=== PATIENT | female | born 1950 | race Caucasian/White ===

== ENCOUNTER 2017-08-02 02:39 | Emergency (ER) | payer MEDICARE | END 2017-08-02 03:22 | disposition left against medical advice (07) | LOC: JP.ED 02:39 | DX: Z53.21 Procedure and treatment not carried out due to patient leaving prior to being seen by health care provider (principal) ==

== ENCOUNTER 2017-08-02 07:46 | Emergency (ER) | payer MEDICARE ==
[2017-08-02] MEDS ORDERED: Ondansetron 4 MG/2 ML SDV IVPUSH ONE (08:26)
[2017-08-02] MEDS: Sodium Chloride 0.9% 1,000 ML IV SCH ×2 (09:01→12:44)
[2017-08-02 12:06] VITALS: BP 136/83
[2017-08-02] MEDS ORDERED: Sodium Chloride 0.9% 1,000 ML IV SCH (12:15)
[2017-08-02] MEDS ORDERED: hydrOXYzine HCl 100 MG/2 ML SDV IM ONE (12:39)
[2017-08-02] MEDS ORDERED: Iopamidol 612 MG/ML 100 ML Bottle IV PRN (13:20)
[2017-08-02] MEDS ORDERED: Sodium Chloride 0.9% 71 ML IV SCH (13:30)
--- NOTE | 2017-08-02 14:47 | EDM.PDOC ---
ED HPI GENERAL MEDICAL PROBLEM - General Chief Complaint: Gastrointestinal Problem Stated Complaint: PAINS IN STOMACH Time Seen by Provider: 08/02/17 08:15 Source of Information: Reports: Patient History Limitations: Reports: No Limitations - History of Present Illness INITIAL COMMENTS - FREE TEXT/NARRATIVE: pt arrived with acute crampy like abdomanal pain. She has been dry heaving and she has been pouring out alot of liquid stools. She states this started in the nite. She has had partial bowel obstruction in the past. Onset: Other (last nite, ) Duration: Hour(s): Location: Reports: Abdomen, Other ( she gets spasms of pain that will last about 10-15 minutes. 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: Polycystic Ovaries Endocrine/Metabolic History: Reports: Hypothyroidism - Infectious Disease History Infectious Disease History: Reports: Chicken Pox, Scarlet Fever, Shingles Social & Family History - Tobacco Use Smoking Status *Q: Former Smoker Years of Tobacco use: 1 Packs/Tins Daily: 0.5 Used Tobacco, but Quit: Yes Month/Year Tobacco Last Used: - Caffeine Use Caffeine Use: Reports: Tea - Recreational Drug Use Recreational Drug Use: No ED ROS GENERAL - Review of Systems Review Of Systems: See Below Constitutional: Reports: No Symptoms HEENT: Reports: No Symptoms Respiratory: Reports: No Symptoms Cardiovascular: Reports: No Symptoms Endocrine: Reports: No Symptoms GI/Abdominal: Reports: Abdominal Pain, Diarrhea, Nausea, Vomiting : Reports: No Symptoms Musculoskeletal: Reports: No Symptoms Skin: Reports: No Symptoms Neurological: Reports: No Symptoms ED EXAM, GI/ABD - Physical Exam Exam: See Below Text/Narrative:: pt arrived with crampy abdomanal pain and markd diarrha . She has been dry heavying. She has been having episodes off pain that will last for 15\ minutes. Exam Limited By: No Limitations General Appearance: Alert, Anxious Ears: Normal TMs Nose: Normal Inspection Throat/Mouth: Normal Inspection Head: Atraumatic Neck: Normal Inspection Respiratory/Chest: No Respiratory Distress Cardiovascular: Regular Rate, Rhythm GI/Abdominal Exam: Tender, Other ( Pt has generalized tendrness. ) (Female) Exam: Deferred Rectal (Female) Exam: Deferred Back Exam: Normal Inspection Extremities: Normal Inspection Neurological: Alert, Oriented, Normal Cognition Course - Vital Signs Last Recorded V/S: Last Vital Signs Temp 35.9 C 08/02/17 12:04 Pulse 69 08/02/17 12:04 Resp 16 08/02/17 12:04 BP 136/83 08/02/17 12:04 Pulse Ox 100 08/02/17 12:04 - Orders/Labs/Meds Orders: Active Orders 24 hr Category Date Time Status Abdomen Pelvis w Cont [CT] Stat Exams 08/02/17 12:39 Taken Abdomen Series w Chest 1V [CR] Stat Exams 08/02/17 08:27 Taken CLOSTRIDIUM DIFFICILE BY PCR [RM] Stat Lab 08/02/17 09:35 Ordered UA W/MICROSCOPIC [URIN] Urgent Lab 08/02/17 12:03 Ordered Iopamidol [Isovue-300 (61%)] Med 08/02/17 13:20 Active 96 ml IV . DIRECTED PRN Sodium Chloride 0.9% [Normal Saline] 1,000 ml Med 08/02/17 08:30 Active IV ASDIRECTED Sodium Chloride 0.9% [Normal Saline] 1,000 ml Med 08/02/17 12:15 Active IV ASDIRECTED Sodium Chloride 0.9% [Normal Saline] 71 ml Med 08/02/17 13:30 Active IV ASDIRECTED Medication Orders Sodium Chloride (Normal Saline) 1,000 mls @ 999 mls/hr IV ASDIRECTED KAYY Last Admin: 08/02/17 12:44 Dose: 999 mls/hr Infusion: 08/02/17 10:02 Dose: 999 mls/hr Admin: 08/02/17 09:01 Dose: 999 mls/hr Sodium Chloride (Normal Saline) 1,000 mls @ 999 mls/hr IV ASDIRECTED KAYY Sodium Chloride (Normal Saline) 71 mls @ 3 mls/sec IV ASDIRECTED KAYY Stop: 08/02/17 20:00 Last Admin: 08/02/17 13:47 Dose: 3 mls/sec Iopamidol (Isovue-300 (61%)) 96 ml IV . DIRECTED PRN PRN Reason: RADIOLOGY EXAM Stop: 08/03/17 13:21 Last Admin: 08/02/17 13:47 Dose: 100 ml Labs: Laboratory Tests 08/02/17 08/02/17 08/02/17 Range/Units 08:24 08:25 09:59 WBC 10.2 (4.5-11.0) K/uL RBC 5.23 (3.30-5.50) M/uL Hgb 15.2 H (12.0-15.0) g/dL Hct 44.6 (36.0-48.0) % MCV 85 (80-98) fL MCH 29 (27-31) pg MCHC 34 (32-36) % Plt Count 285 (150-400) K/uL Neut % (Auto) 88 H (36-66) % Lymph % (Auto) 8 L (24-44) % [place] % (Auto) 4 (2-6) % Eos % (Auto) 0 L (2-4) % Baso % (Auto) 0 (0-1) % Sodium 134 L (140-148) mmol/L Potassium 4.0 (3.6-5.2) mmol/L Chloride 101 (100-108) mmol/L Carbon Dioxide 20 L (21-32) mmol/L Anion Gap 17.0 H (5.0-14.0) mmol/L BUN 17 (7-18) mg/dL Creatinine 0.9 (0.6-1.0) mg/dL Est Cr Clr Drug Dosing 49.49 mL/min Estimated GFR (MDRD) > 60 (>60) Glucose 134 H (74-106) mg/dL Calcium 8.3 L (8.5-10.1) mg/dL Total Bilirubin 0.6 (0.2-1.0) mg/dL AST 20 (15-37) U/L ALT 29 (12-78) U/L Alkaline Phosphatase 61 (46-116) U/L C-Reactive Protein 0.35 H (0.0-0.3) mg/dL Total Protein 6.3 L (6.4-8.2) g/dL Albumin 3.4 (3.4-5.0) g/dL Globulin 2.9 (2.3-3.5) g/dL Albumin/Globulin Ratio 1.2 (1.2-2.2) Amylase (25-115) U/L Lipase (73-393) U/L Urine Color Urine Appearance Urine pH (4.5-8.0) Ur Specific [place] (1.008-1.030) Urine Protein (NEGATIVE) mg/dL Urine Glucose (UA) (NEGATIVE) mg/dL Urine Ketones (NEGATIVE) mg/dL Urine Occult Blood (NEGATIVE) Urine Nitrite (NEGATIVE) Urine Bilirubin (NEGATIVE) Urine Urobilinogen (NORMAL) mg/dL Ur Leukocyte Esterase (NEGATIVE) Urine RBC (0-5) Urine WBC (0-5) Ur Epithelial Cells Amorphous Sediment Urine Bacteria Urine Mucus 08/02/17 08/02/17 Range/Units 10:07 12:03 WBC (4.5-11.0) K/uL RBC (3.30-5.50) M/uL Hgb (12.0-15.0) g/dL Hct (36.0-48.0) % MCV (80-98) fL MCH (27-31) pg MCHC (32-36) % Plt Count (150-400) K/uL Neut % (Auto) (36-66) % Lymph % (Auto) (24-44) % [place] % (Auto) (2-6) % Eos % (Auto) (2-4) % Baso % (Auto) (0-1) % Sodium (140-148) mmol/L Potassium (3.6-5.2) mmol/L Chloride (100-108) mmol/L Carbon Dioxide (21-32) mmol/L Anion Gap (5.0-14.0) mmol/L BUN (7-18) mg/dL Creatinine (0.6-1.0) mg/dL Est Cr Clr Drug Dosing mL/min Estimated GFR (MDRD) (>60) Glucose (74-106) mg/dL Calcium (8.5-10.1) mg/dL Total Bilirubin (0.2-1.0) mg/dL AST (15-37) U/L ALT (12-78) U/L Alkaline Phosphatase (46-116) U/L C-Reactive Protein (0.0-0.3) mg/dL Total Protein (6.4-8.2) g/dL Albumin (3.4-5.0) g/dL Globulin (2.3-3.5) g/dL Albumin/Globulin Ratio (1.2-2.2) Amylase 31 (25-115) U/L Lipase 136 (73-393) U/L Urine Color Yellow Urine Appearance Clear Urine pH 5.0 (4.5-8.0) Ur Specific [place] 1.015 (1.008-1.030) Urine Protein Negative (NEGATIVE) mg/dL Urine Glucose (UA) Normal (NEGATIVE) mg/dL Urine Ketones Negative (NEGATIVE) mg/dL Urine Occult Blood Negative (NEGATIVE) Urine Nitrite Negative (NEGATIVE) Urine Bilirubin Negative (NEGATIVE) Urine Urobilinogen Normal (NORMAL) mg/dL Ur Leukocyte Esterase Negative (NEGATIVE) Urine RBC 0-5 (0-5) Urine WBC 0-5 (0-5) Ur Epithelial Cells Rare Amorphous Sediment Not seen Urine Bacteria Not seen Urine Mucus Not seen Meds: Medications Generic Name Dose Route Start Last Admin Trade Name Freq PRN Reason Stop Dose Admin Sodium Chloride 1,000 mls @ 999 mls/hr 08/02/17 08:30 08/02/17 12:44 Normal Saline IV 999 mls/hr ASDIRECTED KAYY Administration Sodium Chloride 1,000 mls @ 999 mls/hr 08/02/17 12:15 Normal Saline IV ASDIRECTED KAYY Sodium Chloride 71 mls @ 3 mls/sec 08/02/17 13:30 08/02/17 13:47 Normal Saline IV 08/02/17 20:00 3 mls/sec ASDIRECTED KAYY Administration Iopamidol 96 ml 08/02/17 13:20 08/02/17 13:47 Isovue-300 (61%) IV 08/03/17 13:21 100 ml . DIRECTED PRN Administration RADIOLOGY EXAM Discontinued Medications Generic Name Dose Route Start Last Admin Trade Name Freq PRN Reason Stop Dose Admin Hydroxyzine HCl 100 mg 08/02/17 12:39 08/02/17 12:48 Vistaril IM 08/02/17 12:40 100 mg ONETIME ONE Administration Ondansetron HCl 4 mg 08/02/17 08:26 08/02/17 09:15 Zofran IVPUSH 08/02/17 08:27 4 mg ONETIME ONE Administration - Re-Assessments/Exams Free Text/Narrative Re-Assessment/Exam: 08/02/17 14:54 pt had a cat scan of the abdoman which did not reveal acute findings. 08/02/17 14:54 Her lab work looked ok. Her crp was not elevated. Departure - Departure Time of Disposition: 14:45 Disposition: Home, Self-Care 01 Condition: Fair Clinical Impression: Diarrhea, Dehydration, Abdominal cramping - Discharge Information Referrals: Eugenio Wall MD [Primary Care Provider] - Forms: ED Department Discharge Care Plan Goals: , clear liquid diet, rtc if pain should get alot worse, zoforan 4mg q6h prn for nausea - My Orders Last 24 Hours: My Active Orders 08/02/17 08:27 Abdomen Series w Chest 1V [CR] Stat 08/02/17 08:30 Sodium Chloride 0.9% [Normal Saline] 1,000 ml IV ASDIRECTED 08/02/17 09:35 CLOSTRIDIUM DIFFICILE BY PCR [RM] Stat 08/02/17 12:03 UA W/MICROSCOPIC [URIN] Urgent 08/02/17 12:15 Sodium Chloride 0.9% [Normal Saline] 1,000 ml IV ASDIRECTED 08/02/17 12:39 Abdomen Pelvis w Cont [CT] Stat 08/02/17 13:20 Iopamidol [Isovue-300 (61%)] 96 ml IV . DIRECTED PRN 08/02/17 13:30 Sodium Chloride 0.9% [Normal Saline] 71 ml IV ASDIRECTED - Assessment/Plan Last 24 Hours: My Active Orders 08/02/17 08:27 Abdomen Series w Chest 1V [CR] Stat 08/02/17 08:30 Sodium Chloride 0.9% [Normal Saline] 1,000 ml IV ASDIRECTED 08/02/17 09:35 CLOSTRIDIUM DIFFICILE BY PCR [RM] Stat 08/02/17 12:03 UA W/MICROSCOPIC [URIN] Urgent 08/02/17 12:15 Sodium Chloride 0.9% [Normal Saline] 1,000 ml IV ASDIRECTED 08/02/17 12:39 Abdomen Pelvis w Cont [CT] Stat 08/02/17 13:20 Iopamidol [Isovue-300 (61%)] 96 ml IV . DIRECTED PRN 08/02/17 13:30 Sodium Chloride 0.9% [Normal Saline] 71 ml IV ASDIRECTED
--- NOTE | 2017-08-04 09:06 | CR ---
Abdomen Series w Chest 1V CLINICAL HISTORY: Abdominal pain FINDINGS: There are scattered air-filled loops of small bowel with scattered air-fluid levels. There is mild gaseous distention of colon. No free air is identified. Lungs are clear Impression: Small bowel distention. This could represent ileus but early bowel obstruction is not exc luded
== END 2017-08-02 15:01 | disposition home or self-care (01) ==
LOC: JP.ED 07:46
DX: E86.0 Dehydration (principal); R19.7 Diarrhea, unspecified; R10.9 Unspecified abdominal pain; E03.9 Hypothyroidism, unspecified; Z91.040 Latex allergy status; Z88.0 Allergy status to penicillin; Z88.8 Allergy status to other drugs, medicaments and biological substances; Z79.899 Other long term (current) drug therapy; Z87.891 Personal history of nicotine dependence
CPT/HCPCS: 36415; 74022; 74177; 80053; 81001; 82150; 83690; 85025; 86140; 96361; 96372; 96374; 99284; J2405; J3410; J7030; Q9967

== ENCOUNTER 2017-11-03 11:33 | Emergency (ER) | payer MEDICARE ==
[2017-11-03 13:33] VITALS: BP 148/79
--- NOTE | 2017-11-03 13:51 | EDM.PDOC ---
ED HPI GENERAL MEDICAL PROBLEM - General Chief Complaint: Eye Problems Stated Complaint: VISION PROBLEMS IN THE LF EYE Time Seen by Provider: 11/03/17 13:40 Source of Information: Reports: Patient, Family, Provider, RN Notes Reviewed History Limitations: Reports: No Limitations - History of Present Illness INITIAL COMMENTS - FREE TEXT/NARRATIVE: 66-year-old female presents to the emergency department today by a referral from her eye doctor. She states she's been having eye pain for the last several days mostly on the left side facial tenderness in the temporal region as well as headache. She was evaluated by her eye care provider without any etiology. I did discuss with Dr. Dow her case Dr. Dow was concern for temporal arteritis and asked for further evaluation. At this time she states she still having pain however she is not taking anything for the pain vision seems to be stable at this time. 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 Endocrine/Metabolic History: Reports: Hypothyroidism Dermatologic History: Reports: Other (See Below) Other Dermatologic History: broke out in body rash - Infectious Disease History Infectious Disease History: Reports: Chicken Pox, Scarlet Fever, Shingles - Past Surgical History HEENT Surgical History: Reports: Tonsillectomy Social & Family History - Tobacco Use Smoking Status *Q: Never Smoker Second Hand Smoke Exposure: No - Caffeine Use Caffeine Use: Reports: Tea - Recreational Drug Use Recreational Drug Use: No ED ROS GENERAL - Review of Systems Review Of Systems: See Below Constitutional: Reports: No Symptoms HEENT: Reports: Eye Pain. Denies: Eye Discharge Respiratory: Reports: No Symptoms Cardiovascular: Reports: No Symptoms Neurological: Reports: Headache ED EXAM GENERAL W FULL EYE - Physical Exam Exam: See Below Exam Limited By: No Limitations General Appearance: Alert, WD/WN, No Apparent Distress Eye Exam: Bilateral Eye: Normal Inspection Eyelids: Bilateral: Normal Appearance Conjunctiva & Sclera: Bilateral: Normal Appearance Extraocular Movements: Bilateral: Intact Nose: Normal Inspection, Normal Mucosa, No Blood Throat/Mouth: Normal Inspection, Normal Lips, Normal Teeth, Normal Gums, Normal Oropharynx, Normal Voice, No Airway Compromise Head: Atraumatic, Normocephalic, Other (Tenderness is appreciated on the left religious) Neck: Normal Inspection, Supple, Non-Tender, Full Range of Motion Respiratory/Chest: No Respiratory Distress Course - Vital Signs Last Recorded V/S: Last Vital Signs Temp 96.2 F 11/03/17 13:16 Pulse 55 L 11/03/17 13:16 Resp 20 11/03/17 13:16 BP 148/79 H 11/03/17 13:16 Pulse Ox 98 11/03/17 13:16 - Orders/Labs/Meds Orders: Active Orders 24 hr Category Date Time Status CBC WITH AUTO DIFF [HEME] Stat Lab 11/03/17 13:45 Ordered COMPREHENSIVE METABOLIC PN,CMP [CHEM] Stat Lab 11/03/17 13:45 Ordered SEDIMENTATION RATE MANUAL [HEME] Stat Lab 11/03/17 13:45 Ordered Departure - Departure Time of Disposition: 13:50 Disposition: Home, Self-Care 01 Condition: Fair Clinical Impression: Eye pain Qualifiers: Laterality: left Qualified Code(s): H57.12 - Ocular pain, left eye - Discharge Information Referrals: Eugenio Wall MD [Primary Care Provider] - Additional Instructions: I will try and call you within 2 hours with your lab results however if you do not hear back please call back to the emergency department for your lab results - My Orders Last 24 Hours: My Active Orders 11/03/17 13:45 CBC WITH AUTO DIFF [HEME] Stat COMPREHENSIVE METABOLIC PN,CMP [CHEM] Stat SEDIMENTATION RATE MANUAL [HEME] Stat - Assessment/Plan Last 24 Hours: My Active Orders 11/03/17 13:45 CBC WITH AUTO DIFF [HEME] Stat COMPREHENSIVE METABOLIC PN,CMP [CHEM] Stat SEDIMENTATION RATE MANUAL [HEME] Stat Plan: Assessment Acuity = acute Site and laterality = left religious pain Etiology = unclear etiology Manifestations = none Location of injury = Home Lab values = CBC, CMP pending sedimentation rate pending Plan Patient did not want to stay for complete workup and evaluation preferred to have lab work drawn and then call her with results if temporal artery biopsy was required she would return for further evaluation. This note was dictated using [employer] voice recognition software please call with any questions on syntax or grammar.
== END 2017-11-03 14:23 | disposition home or self-care (01) ==
LOC: JP.ED 11:33
DX: H57.12 Ocular pain, left eye (principal); R51 Headache; Z88.0 Allergy status to penicillin; Z91.040 Latex allergy status; Z91.012 Allergy to eggs
CPT/HCPCS: 36415; 80053; 85025; 85651; 99284

== ENCOUNTER 2024-10-13 17:43 | Emergency (ER) | payer MEDICARE ==
[2024-10-13] MEDS: methylPREDNISolone Sodium Succinate 40 MG/1 ML SDV IM ONE (20:56)
[2024-10-13 20:58] VITALS: BP 144/63; PULSE 77
== END 2024-10-13 22:31 | disposition home or self-care (01) ==
LOC: JP.ED 17:43
DX: L50.9 Urticaria, unspecified (principal); E78.00 Pure hypercholesterolemia, unspecified; E03.9 Hypothyroidism, unspecified; Z91.012 Allergy to eggs; Z91.040 Latex allergy status; Z88.0 Allergy status to penicillin; Z88.8 Allergy status to other drugs, medicaments and biological substances; Z79.899 Other long term (current) drug therapy; Z79.82 Long term (current) use of aspirin; Z79.890 Hormone replacement therapy
CPT/HCPCS: 96372; 99282; J1171; J1790; J2919